=== PATIENT | male | born 1945 | race African-American/Black ===

== ENCOUNTER 2017-11-26 06:07 | Day surgery (SDC) | payer OTHER ==
[~2017-11-26] VITALS: Ht 182.9 cm; Wt 141.5 kg
[~2017-11-26 06:07] MED LIST: CARTIA XT180 MG PO; COZAAR25 MG PO; ISORDIL,SORBITR40 M3 PO; LIPITOR10 MG PO; LIPITOR80 MG PO; LO-DOSE ASPIRIN81 M2 PO; ZYLOPRIM100 MG PO
[2017-11-26 07:02] VITALS: BP 147/76
[2017-11-26 10:45] VITALS: BP 153/72
[2017-11-26 11:44] VITALS: BP 170/80
== END 2017-11-26 11:45 | disposition home or self-care (01) ==
LOC: SDC 06:07
PROVIDERS: Internal Medicine
DX: H35.341 Macular cyst, hole, or pseudohole, right eye (principal); E11.21 Type 2 diabetes mellitus with diabetic nephropathy; I12.9 Hypertensive chronic kidney disease with stage 1 through stage 4 chronic kidney disease, or unspecified chronic kidney disease; N18.4 Chronic kidney disease, stage 4 (severe); E78.5 Hyperlipidemia, unspecified; Z79.4 Long term (current) use of insulin; Z79.82 Long term (current) use of aspirin
CPT/HCPCS: 82948; J0690; J3300